=== PATIENT | female | born 1975 | race African-American/Black ===

== ENCOUNTER 2017-07-15 00:27 | Emergency (ER) | payer BC ==
[2017-07-15 00:46] VITALS: BP 120/74
--- NOTE | 2017-07-15 01:42 | RADIOLOGY REPORT (SQ) ---
EXAM DESCRIPTION: FOREARM RIGHT COMPLETED DATE/TIME: 07/15/2017 1:28 am REASON FOR STUDY: PAIN , fell off step ladder. Pain at the right mid forearm. COMPARISON: Right wrist x-ray 07/15/2017. NUMBER OF VIEWS: Two views. TECHNIQUE: Two radiographic images acquired of the right forearm, including elbow and wrist in at le ast one projection. LIMITATIONS: None. FINDINGS: MINERALIZATION: Normal. BONES: No acute fracture or dislocation. SOFT TISSUES: No obvious swelling or radiopaque foreign body. IMPRESSION: No radiographic evidence of acute injury. TECHNICAL DOCUMENTATION: JOB ID: [id number] 2010 [employer]- All Rights Reserved
--- NOTE | 2017-07-15 01:46 | RADIOLOGY REPORT (SQ) ---
EXAM DESCRIPTION: WRIST RIGHT 3 VIEWS COMPLETED DATE/TIME: 07/15/2017 1:28 am REASON FOR STUDY: PAIN , fell of step ladder. Pain at the anterior aspect of the right wrist. COMPARISON: None. NUMBER OF VIEWS: Three views. TECHNIQUE: AP, lateral, and oblique radiographic images acquired of the right wrist. LIMITATIONS: None. FINDINGS: MINERALIZATION: Normal. BONES: No acute fracture or dislocation. Normal alignment. SOFT TISSUES: No soft tissue swelling. No radiopaque foreign body. IMPRESSION: No radiographic evidence of acute injury. TECHNICAL DOCUMENTATION: JOB ID: [id number] 2010 [employer]- All Rights Reserved
--- NOTE | 2017-07-15 02:10 | ER Document Report ---
HPI - HPI Patient complains to provider of: fall Pain Level: 3 Context: patient is a 41-year-old patient is a 41-year-old [id number]-suosbits female who presents emergency department after suffering from loss of balance and fall from a ladder that was less than 3 feet high. Patient states that she fell landing on her right wrist she is unsure if it is hyper extended or Hyperflex. States she has pain in both distal ulna and radius with preserved range of motion of her wrist and elbow. Patient states that she has pain with supination and pronation but otherwise denies any numbness and tingling distal to the pain. Patient states that she did not take anything for pain prior to arrival - CONSTITUTIONAL Constitutional: DENIES: Fever, Chills - EENT EENT: DENIES: Sore Throat, Ear Pain, Eye problems - NEURO Neurology: DENIES: Headache, Weakness, Vision blurred, Dizzinesss / Vertigo - CARDIOVASCULAR Cardiovascular: DENIES: Chest pain - RESPIRATORY Respiratory: DENIES: Trouble Breathing, Coughing - GASTROINTESTINAL Gastrointestinal: DENIES: Abdominal Pain, Black / Bloody Stools - URINARY Urinary: DENIES: Dysuria, Urgency, Frequency - MUSCULOSKELETAL Musculoskeletal: REPORTS: Extremity pain - R wrist Past Medical History - Social History Smoking Status: Unknown if Ever Smoked Family History: Reviewed & Not Pertinent Patient has suicidal ideation: No Patient has homicidal ideation: No Renal/ Medical History: Denies: Hx Peritoneal Dialysis Vertical Provider Document - CONSTITUTIONAL Agree With Documented VS: Yes Notes: PHYSICAL EXAM GENERAL: Alert, interacts well. HEAD: Normocephalic, atraumatic. LUNGS: Clear to auscultation bilaterally, no wheezes, rales, or rhonchi. No respiratory distress. HEART: Regular rate and rhythm. No murmurs, gallops, or rubs. ABDOMEN: Soft, nondistended, nontender. No guarding, rebound, or rigidity.. Bowel sounds present in all 4 quadrants. EXTREMITIES: Moves all 4 extremities spontaneously. No edema, radial pulses 2/ 4 bilaterally. No cyanosis. Right wrist with normal inspection without evidence of edema, deformity, ecchymosis. Minimal tenderness to palpation at the distal radius and distal ulna. Patient able to flex and extend her wrist. Scrap Drop Operator strength 5 out of 5 bilaterally. Sensory equal in both upper extremities. Cap refill less than 2 seconds in bilateral upper extremity digits. Patient able to flex right elbow nontender with full range of motion NEUROLOGICAL: Alert and oriented x4. Normal speech. PSYCH: Normal affect, normal mood. SKIN: Warm, dry, normal turgor. No rashes or lesions noted. - INFECTION CONTROL TRAVEL OUTSIDE OF THE [place] IN LAST 30 DAYS: No - RESPIRATORY O2 Sat by Pulse Oximetry: 98 Course - Re-evaluation Re-evalutation: 07/15/17 02:09 patient is a 41-year-old female is hemodynamically stable, no acute distress. Presentation is consistent with a wrist sprain. Physical exam with low clinical suspicion for scaphoid injury given negative for snuffbox tenderness and pain proximal to that site. No evidence of a septic joint, gout flare, dislocation, or fracture on exam and imaging. Vitals wnl. At this time, I do not see an indication for labs or further imaging. Will discharge with conservative measures, return precautions, and follow-up recommendations. - Vital Signs Vital signs: Temp Pulse Resp BP Pulse Ox 99.2 F 80 18 120/74 98 07/15/17 00:44 07/15/17 00:44 07/15/17 00:44 07/15/17 00:44 07/15/17 00:44 - Diagnostic Test Radiology reviewed: Image reviewed, Reports reviewed Discharge - Discharge Clinical Impression: Wrist injury Qualifiers: Encounter type: initial encounter Laterality: right Qualified Code(s): S69.91XA - Unspecified injury of right wrist, hand and finger(s), initial encounter Condition: Good Disposition: HOME, SELF-CARE Instructions: Use of Rzne-Shd-Hyypjdy Ibuprofen ([facility]), Ice & Elevation ([facility]), Wrist Sprain ([facility])
== END 2017-07-15 02:19 | disposition home or self-care (01) ==
LOC: ER 00:27
DX: S69.91XA Unspecified injury of right wrist, hand and finger(s), initial encounter (principal); W11.XXXA Fall on and from ladder, initial encounter
CPT/HCPCS: 99283; 73090; 73110; L3908

== ENCOUNTER 2018-05-08 10:41 | Day surgery (SDC) | payer BC ==
[2018-05-08] MEDS ORDERED: DOXYCYCLINE HYCLATE 100 MG in DEXTROSE 5%-WATER 250 ML IV PRN (10:55)
[2018-05-08 11:13] LABS: APPEARANCE,URINE SLIGHTLY-CLOUDY; BILIRUBIN,URINE NEGATIVE (NEGATIVE); COLOR,URINE YELLOW; GLUCOSE, URINE NEGATIVE (NEGATIVE); KETONES,URINE NEGATIVE (NEGATIVE); LEUKOCYTE ESTERASE,URINE TRACE (NEGATIVE); NITRITE,URINE NEGATIVE (NEGATIVE); PROTEIN,URINE NEGATIVE (NEGATIVE); URINE SPECIFIC GRAVITY 1.021
[2018-05-08 11:25] LABS: HEMATOCRIT 39.7 % (36.0-47.0); HEMOGLOBIN 13.8 g/dL (12.0-15.5); MEAN CORPUSCULAR HEMOGLOBIN 31.5 pg (27.0-33.4); MEAN CORPUSCULAR HGB CONC 34.7 g/dL (32.0-36.0); MEAN CORPUSCULAR VOLUME 91 fl (80-97); PLATELET COUNT 271 10^3/uL (150-450); RED BLOOD COUNT 4.37 10^6/uL (3.72-5.28); RED CELL DISTRIBUTION WIDTH 13.4 % (11.5-14.0); WHITE BLOOD COUNT 7.6 10^3/uL (4.0-10.5)
[2018-05-08] MEDS ORDERED: KETOROLAC TROMETHAMINE 60 MG/2 ML SDV ONE (12:33)
[2018-05-08] MEDS ORDERED: LIDOCAINE 2% INJ-PF (20 MG/ML) 10 ML AMPUL ONE (12:33)
[2018-05-08] MEDS ORDERED: FENTANYL CITRATE INJ/PF 100 MCG/2 ML AMPUL ONE (12:33)
[2018-05-08] MEDS ORDERED: MIDAZOLAM 2 MG/2 ML INJ ONE (12:33)
[2018-05-08] MEDS ORDERED: PROPOFOL INJ 200 MG/20 ML VIAL IV ONE (12:34)
[2018-05-08] MEDS ORDERED: ACETAMINOPHEN 1,000 MG/100 ML RTUPB IV ONE (12:34)
[2018-05-08] MEDS ORDERED: ONDANSETRON HCL INJ/PF 4 MG/2 ML SDV ONE (12:44)
[2018-05-08] MEDS ORDERED: DEXAMETHASONE SOD PHOSPHATE INJ 4 MG/1 ML VIAL ONE (12:44)
[2018-05-08] MEDS ORDERED: PROMETHAZINE HCL INJ 25 MG/1 ML VIAL IV PRN ×2 (13:17)
[2018-05-08] MEDS ORDERED: ONDANSETRON HCL INJ/PF 4 MG/2 ML SDV IV PRN (13:17)
[2018-05-08] MEDS ORDERED: FENTANYL CITRATE INJ/PF 100 MCG/2 ML AMPUL IV PRN ×3 (13:17)
[2018-05-08] MEDS ORDERED: MEPERIDINE HCL/PF INJ 25 MG/1 ML DISP.SYRIN IV PRN (13:17)
[2018-05-08] MEDS ORDERED: DIPHENHYDRAMINE HCL 50 MG/ML VIAL IV PRN (13:17)
[2018-05-08] MEDS ORDERED: OXYCODONE-ACETAMINOPHEN 5-325 MG TABLET PO PRN ×4 (13:17→14:08)
--- NOTE | 2018-05-08 13:32 | Operative Report ---
Operative Report DATE OF SURGERY: 05/08/18 PREOPERATIVE DIAGNOSIS: Missed AB POSTOPERATIVE DIAGNOSIS: Same OPERATION: Suction D&C SURGEON: ASHKAN FUENTES ANESTHESIA: GA TISSUE REMOVED OR ALTERED: Uterine contents COMPLICATIONS: None ESTIMATED BLOOD LOSS: 20 cc INTRAOPERATIVE FINDINGS: Sound 8 cm before and after the case PROCEDURE: Patient was taken the OR and placed in supine position. General anesthesia was induced. She was placed in the dorsolithotomy position using Reginaldo stirrups. Her perineum and vagina were prepared and draped in sterile fashion. Her bladder was emptied with red rubber catheter. A weighted speculum was placed in the anterior cervix grasped with tenaculum. Sounded 8 cm before and after the case anteverted midline uterus. Cervix was gently dilated. Size 10 suction curette was used to evacuate uterine contents. At the end of the procedure the uterus was explored with a gentle sharp curettage and no retained products were noted. 1 Last Pass was taken with the suction curette and no further products noted. Sound at the end the case was 8 centimeters. Her blood type is Rh+ and no RhoGam issues are identified. All instruments were removed. The specimen will be sent for chromosomes. This is the end of dictation thank you
[2018-05-08] MEDS ORDERED: IBUPROFEN 800 MG TABLET PO PRN (14:07)
[2018-05-08] MEDS ORDERED: RINGERS SOLUTION,LACTATED 1,000 ML IV PRN (14:09)
[2018-05-08 16:25] VITALS: BP 99/56
== END 2018-05-08 16:20 | disposition home or self-care (01) ==
LOC: OROUT 10:41
PROVIDERS: ATTEND Obstetrics & Gynecology
DX: O02.1 Missed abortion (principal); F32.9 Major depressive disorder, single episode, unspecified; F41.9 Anxiety disorder, unspecified; Z87.891 Personal history of nicotine dependence; Z79.899 Other long term (current) drug therapy
CPT/HCPCS: 36415; 84702; 85027; 81001; 88233; 88262; 88305 ×2; 59820; J2250; J1100; J3490 ×2; J1885; J3010; J2405; J7060; J2704; J0131; 1965

== ENCOUNTER 2019-01-15 09:01 | Day surgery (SDC) | payer BC ==
[~2019-01-15 09:01] MED LIST: METHYLERGONOVINE MALEATE INJ/PF 0.2 MG/1 ML AMPULE ONE
[2019-01-15] MEDS ORDERED: MIDAZOLAM 2 MG/2 ML INJ ONE ×2 (09:13→10:45)
[2019-01-15] MEDS ORDERED: FAMOTIDINE INJ/PF 20 MG/2 ML SDV IV ONE (09:13)
[2019-01-15] MEDS ORDERED: METOCLOPRAMIDE HCL INJ/PF 10 MG/2 ML SDV ONE (09:13)
[2019-01-15] MEDS ORDERED: GLYCOPYRROLATE 1 MG/5 ML SYRINGE ONE (09:42)
[2019-01-15] MEDS ORDERED: LIDOCAINE 2% INJ-PF (20 MG/ML) 2 ML AMPUL ONE (09:42)
[2019-01-15 09:43] LABS: APPEARANCE,URINE SLIGHTLY-CLOUDY; BILIRUBIN,URINE NEGATIVE (NEGATIVE); COLOR,URINE YELLOW; GLUCOSE, URINE NEGATIVE (NEGATIVE); KETONES,URINE 20 mg/dL (NEGATIVE); LEUKOCYTE ESTERASE,URINE MODERATE (NEGATIVE); NITRITE,URINE NEGATIVE (NEGATIVE); PROTEIN,URINE NEGATIVE (NEGATIVE); URINE SPECIFIC GRAVITY 1.019; UROBILINOGEN,URINE NEGATIVE mg/dL (<2.0)
[2019-01-15] MEDS ORDERED: ALBUTEROL SULFATE 0.083% NEB 2.5 MG/3 ML AMPUL NEB ONE (09:43)
[2019-01-15 09:56] LABS: HEMATOCRIT 28.8 % (36.0-47.0); MEAN CORPUSCULAR HEMOGLOBIN 31.3 pg (27.0-33.4); MEAN CORPUSCULAR HGB CONC 34.6 g/dL (32.0-36.0); MEAN CORPUSCULAR VOLUME 90 fl (80-97); PLATELET COUNT 421 10^3/uL (150-450); RED BLOOD COUNT 3.18 10^6/uL (3.72-5.28); WHITE BLOOD COUNT 10.2 10^3/uL (4.0-10.5)
[2019-01-15] MEDS ORDERED: DOXYCYCLINE HYCLATE 100 MG in DEXTROSE 5%-WATER 250 ML IV PRN (10:32)
[2019-01-15] MEDS ORDERED: SCOPOLAMINE HYDROBROMIDE 1.5 MG PATCH.TD72 ONE (10:35)
[2019-01-15] MEDS ORDERED: DEXAMETHASONE SOD PHOSPHATE INJ 4 MG/1 ML VIAL ONE (10:35)
[2019-01-15] MEDS ORDERED: FENTANYL CITRATE INJ/PF 100 MCG/2 ML AMPUL ONE (10:45)
[2019-01-15] MEDS ORDERED: KETAMINE HCL INJ 500 MG/10 ML VIAL ONE (10:45)
[2019-01-15] MEDS ORDERED: MISOPROSTOL 0.2 MG TABLET ONE (10:45)
[2019-01-15] MEDS ORDERED: PROPOFOL INJ 200 MG/20 ML VIAL IV ONE (10:46)
[2019-01-15] MEDS ORDERED: DIPHENHYDRAMINE HCL 50 MG/ML VIAL IV PRN (12:03)
[2019-01-15] MEDS ORDERED: FENTANYL CITRATE INJ/PF 100 MCG/2 ML AMPUL IV PRN ×3 (12:03)
[2019-01-15] MEDS ORDERED: PROMETHAZINE HCL INJ 25 MG/1 ML VIAL IV PRN ×2 (12:03)
[2019-01-15] MEDS ORDERED: MEPERIDINE HCL/PF INJ 25 MG/1 ML DISP.SYRIN IV PRN (12:03)
--- NOTE | 2019-01-15 12:23 | Operative Report ---
Operative Report DATE OF SURGERY: 01/15/19 PREOPERATIVE DIAGNOSIS: 1. Retained products of conception. 2. Rh Positive POSTOPERATIVE DIAGNOSIS: Same plus possible endocervical polyp OPERATION: Suction dilatation and curettage SURGEON: ZHANG WALLACE ANESTHESIA: LMAC TISSUE REMOVED OR ALTERED: Products of conception COMPLICATIONS: None ESTIMATED BLOOD LOSS: 550 ml INTRAOPERATIVE FINDINGS: Uterus sounded 12 cm; 10 mm curved Kyrgyz curette used to; large amounts of products of conception; possible cervical polyp PROCEDURE: The patient was taken to the Operating Room where general anesthesia was obtained without difficulty. She was prepped and draped in the normal sterile fashion in the dorsal lithotomy position. Exam under anesthesia was performed and noted above. A speculum was placed in the vagina. The anterior cervix was grasped with a single-tooth tenaculum and the uterus sounded to 12 cm. The cervix was noted to be slightly dilated at the beginning of the procedure. There was a polypoid lesion at the cervical os, which was removed with the polyp forceps. It ws passed off to the OR Tech for pathological evaluation. Sequential dilators were then used to dilate the cervix to accommodate the 10 mm suction curet curved. The 10 mm curved suction curet was gently advanced in the usual fashion and good return of tissue. The suction device was then activated and the curet rotated to clear the uterus of the products of conception. A sharp curettage was then performed. The suction device was then gently reintroduced and activated and the curet rotated to clear the uterus of conception which was loosened with recent sharp curettage. There was large amounts of products of conception. Three containers were filled. The sharp curettage was then performed again until a gritty texture was noted and the cavity was felt to be empty of further tissue. Methergine 0.2 mg was given IM. I also placed Cytotec 800 mcg per rectum. After the injection, there was minimal bleeding noted from the cervix. All instruments were removed from the patient's cervix and vagina. Monsel solution was applied to polyp excision site for hemostasis. Sponge, lap, needle and instrument counts are correct 2. Doxycycline 100 mg IV was given perioperatively. The patient tolerated the procedure well and was taken to the recovery area awake and in stable condition. The patient was discharged home.
[2019-01-15] MEDS: FENTANYL CITRATE INJ/PF 100 MCG/2 ML AMPUL ONE ×2 (12:27→12:35)
[2019-01-15] MEDS ORDERED: ONDANSETRON HCL INJ/PF 4 MG/2 ML SDV IV PRN (13:04)
[2019-01-15] MEDS ORDERED: OXYCODONE-ACETAMINOPHEN 5-325 MG TABLET PO PRN (13:04)
[2019-01-15] MEDS ORDERED: OXYCODONE-ACETAMINOPHEN 5-325 MG TABLET ONE (13:07)
[2019-01-15 14:34] VITALS: BP 99/53
== END 2019-01-15 14:05 | disposition home or self-care (01) ==
LOC: OROUT 09:01
PROVIDERS: ATTEND Obstetrics & Gynecology
DX: O02.1 Missed abortion (principal); N84.1 Polyp of cervix uteri; F17.210 Nicotine dependence, cigarettes, uncomplicated; Z79.899 Other long term (current) drug therapy
CPT/HCPCS: 86900; 86901; 36415; 86850; 85027; 81001; 88305 ×2; 59820; J2250; J1100; J3490 ×4; J3010; J2210; J2765; J7060; J2704; S0028; 1965

== ENCOUNTER 2019-01-17 21:07 | Inpatient (IN) | payer BC ==
[2019-01-17 23:21] LABS: VENOUS BLOOD BASE EXCESS -1.8 mmol/L; VENOUS BLOOD HCO3 21.6 mmol/L (20-32); VENOUS BLOOD PCO2 31.3 mmHg (35-63); VENOUS BLOOD PH 7.46 (7.30-7.42)
[2019-01-17 23:27] LABS: HEMATOCRIT 23.2 % (36.0-47.0); HEMOGLOBIN 8.2 g/dL (12.0-15.5); MEAN CORPUSCULAR HEMOGLOBIN 31.6 pg (27.0-33.4); MEAN CORPUSCULAR HGB CONC 35.3 g/dL (32.0-36.0); MEAN CORPUSCULAR VOLUME 89 fl (80-97); PLATELET COUNT 350 10^3/uL (150-450); RED CELL DISTRIBUTION WIDTH 14.3 % (11.5-14.0); WHITE BLOOD COUNT 16.8 10^3/uL (4.0-10.5)
[2019-01-17 23:30] LABS: INTERNATIONAL RATION (INR) 0.97; PROTHROMBIN TIME 13.4 SEC (11.4-15.4)
[2019-01-17 23:40] LABS: ALANINE AMINOTRANSFERASE 17 U/L (9-52); ALBUMIN 3.2 g/dL (3.5-5.0); ALKALINE PHOSPHATASE 63 U/L (38-126); ANION GAP 10 (5-19); ASPARTATE AMINO TRANSFERASE 15 U/L (14-36); BILIRUBIN,DIRECT 0.2 mg/dL (0.0-0.4); BILIRUBIN,TOTAL 0.2 mg/dL (0.2-1.3); BLOOD UREA NITROGEN 7 mg/dL (7-20); CALCIUM 8.3 mg/dL (8.4-10.2); CARBON DIOXIDE 21 mmol/L (22-30); CHLORIDE 104 mmol/L (98-107); GLUCOSE 108 mg/dL (75-110); SODIUM 134.5 mmol/L (137-145); TOTAL PROTEIN 5.9 g/dL (6.3-8.2)
[2019-01-17 23:43] LABS: ABSOLUTE LYMPHOCYTES# (MANUAL) 0.3 10^3/uL (0.5-4.7); ABSOLUTE NEUTROPHILS# (MANUAL) 16.5 10^3/uL (1.7-8.2); BAND NEUTROPHILS % (MANUAL) 4 % (3-5); BASOPHILS % (MANUAL) 0 % (0-2); EOSINOPHILS % (MANUAL) 0 % (0-6); LYMPHOCYTES % (MANUAL) 2 % (13-45); MONOCYTES % (MANUAL) 0 % (3-13); SEGMENTED NEUTROPHILS % (MAN) 94 % (42-78); TOTAL CELLS COUNTED 100
[2019-01-17 23:45] LABS: PLATELET CLUMPS PRESENT
[2019-01-17 23:48] LABS: ANISOCYTOSIS SLIGHT
[2019-01-17 23:59] LABS: APPEARANCE,URINE SLIGHTLY-CLOUDY; BILIRUBIN,URINE NEGATIVE (NEGATIVE); COLOR,URINE YELLOW; GLUCOSE, URINE NEGATIVE (NEGATIVE); KETONES,URINE NEGATIVE (NEGATIVE); LEUKOCYTE ESTERASE,URINE SMALL (NEGATIVE); NITRITE,URINE NEGATIVE (NEGATIVE); PROTEIN,URINE NEGATIVE (NEGATIVE); URINE SPECIFIC GRAVITY 1.002; UROBILINOGEN,URINE NEGATIVE mg/dL (<2.0)
[2019-01-18] MEDS ORDERED: CLINDAMYCIN 600 MG/D5W RTU 600 MG/50 ML RTUPB IV ONE (00:14)
[2019-01-18] MEDS ORDERED: GENTAMICIN SULFATE INJ 80 MG/2 ML VIAL IV ONE (00:14)
[2019-01-18] MEDS ORDERED: RINGERS SOLUTION,LACTATED 2,000 ML IV ONE (00:15)
[2019-01-18] MEDS ORDERED: ACETAMINOPHEN 325 MG TABLET PO ONE (00:16)
[2019-01-18] MEDS ORDERED: POTASSI CL 20 MEQ/50 ML RIDER 20 MEQ/50 ML RTUPB IV ONE (00:16)
[2019-01-18 00:18] LABS: BACTERIA (WET MOUNT) 3+ BACTERIA SEEN; EPITHELIALS (WET MOUNT) 3+ EPITHELIALS SEEN; RBCS (WET MOUNT) 1+ RBCS SEEN; T.VAGINALIS (WET MOUNT) NO TRICHOMONAS SEEN; WBCS (WET MOUNT) 1+ WBCS SEEN; YEAST (WET MOUNT) NO YEAST SEEN
--- NOTE | 2019-01-18 00:18 | ER Document Report ---
ED General - General Chief Complaint: Post Surgical Pain Stated Complaint: FEVER,HEADACHE,CHILLS Time Seen by Provider: 01/17/19 23:16 Notes: Patient is a 43-year-old female who had a D&C performed 48 hours ago who presents with concerns of fever. Patient states that over the last 12 to 24 hours she has been feeling increasingly unwell with malaise, body aches and was noted to have a fever at home. She came to the emergency department due to the symptoms. States symptoms are gradual in onset, been worsening since that time. Describes a generalized, cramping, aching discomfort to her lower abdomen that is quite mild in nature. Nothing has been noted to improve her symptoms and she did try acetaminophen at home. No obvious worsening factor. Denies any history of similar symptoms in the past. D&C was performed secondary to a miscarriage. Patient denies any other chronic medical problems or any other surgical history. TRAVEL OUTSIDE OF THE [place] IN LAST 30 DAYS: No - Related Data Allergies/Adverse Reactions: No Known Allergies Allergy (Verified 01/17/19 23:07) Past Medical History - General Information source: Patient - Social History Smoking Status: Current Every Day Smoker Frequency of alcohol use: None Drug Abuse: None Lives with: Spouse/Significant other Family History: Reviewed & Not Pertinent Patient has suicidal ideation: No Patient has homicidal ideation: No - Past Medical History Cardiac Medical History: Denies: Hx Coronary Artery Disease, Hx Heart Attack, Hx Hypertension Pulmonary Medical History: Denies: Hx Asthma, Hx Bronchitis, Hx COPD, Hx Pneumonia Neurological Medical History: Denies: Hx Cerebrovascular Accident, Hx Seizures Renal/ Medical History: Denies: Hx Peritoneal Dialysis Musculoskeletal Medical History: Denies Hx Arthritis Psychiatric Medical History: Reports: Hx Depression Past Surgical History: Reports: Hx Breast Surgery - augmentation, Hx Gynecologic Surgery - D&C x2, Hx Orthopedic Surgery - "hip pins" - Immunizations Hx Diphtheria, Pertussis, Tetanus Vaccination: No Review of Systems - Review of Systems Notes: Constitutional: Positive for fever. HENT: Negative for sore throat. Eyes: Negative for visual changes. Cardiovascular: Negative for chest pain. Respiratory: Negative for shortness of breath. Gastrointestinal: Positive for lower abdominal cramping and nausea Genitourinary: Negative for dysuria. Positive for vaginal bleeding Musculoskeletal: Negative for back pain. Skin: Negative for rash. Neurological: Negative for headaches, weakness or numbness. 10 point ROS negative except as marked above and in HPI. Physical Exam - Vital signs Vitals: Temp Pulse Resp BP Pulse Ox 101.5 F H 127 H 18 105/61 98 01/17/19 21:28 01/17/19 21:28 01/17/19 21:28 01/17/19 21:28 01/17/19 21:28 Interpretation: Tachycardic, Febrile Notes: PHYSICAL EXAMINATION: GENERAL: Appears moderately unwell but in no acute distress HEAD: Atraumatic, normocephalic. EYES: Pupils equal round and reactive to light, extraocular movements intact, sclera anicteric, conjunctiva are normal. ENT: nares patent, oropharynx clear without exudates. Moderately dry mucous membranes. NECK: Normal range of motion, supple without lymphadenopathy LUNGS: Breath sounds clear to auscultation bilaterally and equal. No wheezes rales or rhonchi. HEART: Regular tachycardia without murmurs ABDOMEN: Soft, nontender, normoactive bowel sounds. No guarding, no rebound. No masses appreciated. : Mild superpubic abdominal tenderness. No cervical motion tenderness. Scant vaginal bleeding. EXTREMITIES: Normal range of motion, no pitting or edema. No cyanosis. NEUROLOGICAL: No focal neurological deficits. Moves all extremities spontaneously and on command. PSYCH: Normal mood, normal affect. SKIN: Warm, Dry, normal turgor, no rashes or lesions noted. Course - Re-evaluation Re-evalutation: 01/18/19 00:17 Patient presents with history worrisome for endometritis after D&C 48 hours ago. Transvaginal ultrasound is pending to evaluate for retained products conception. Patient is febrile with leukocytosis, does meet sepsis criteria. Pelvic examination shows blood but no significant lochia. Patient has no focal abdominal tenderness, rebound or guarding on exam. No alternative source of fever by history or exam. The patient has been started on gentamicin and clindamycin. IV fluid resuscitation as well as antipyresis likewise ordered. 01/18/19 01:13 Transvaginal ultrasound shows thickened endometrium although no evidence of retained products of conception. Patient's blood pressures are somewhat soft although based on review of her record she consistently has mild hypotension's in the 90s. She is receiving fluid boluses at this time. I have discussed with Dr. porras the OB on-call who has accepted the patient for admission. - Vital Signs Vital signs: Temp Pulse Resp BP Pulse Ox 98.0 F 127 H 20 91/48 L 100 01/18/19 03:00 01/17/19 21:28 01/18/19 03:00 01/18/19 03:00 01/18/19 03:00 - Laboratory Result Diagrams: 01/17/19 22:50 01/17/19 22:50 Laboratory results interpreted by me: 01/17/19 01/17/19 01/17/19 22:50 22:50 22:50 WBC 16.8 H RBC 2.60 L Hgb 8.2 L Hct 23.2 L RDW 14.3 H Seg Neuts % (Manual) 94 H Lymphocytes % (Manual) 2 L Monocytes % (Manual) 0 L Abs Neuts (Manual) 16.5 H Abs Lymphs (Manual) 0.3 L Abs Monocytes (Manual) 0.0 L VBG pH 7.46 H VBG pCO2 31.3 L Sodium 134.5 L Potassium 3.0 L* Carbon Dioxide 21 L Creatinine 0.50 L Calcium 8.3 L Total Protein 5.9 L Albumin 3.2 L Urine Blood Ur Leukocyte Esterase 01/17/19 23:37 WBC RBC Hgb Hct RDW Seg Neuts % (Manual) Lymphocytes % (Manual) Monocytes % (Manual) Abs Neuts (Manual) Abs Lymphs (Manual) Abs Monocytes (Manual) VBG pH VBG pCO2 Sodium Potassium Carbon Dioxide Creatinine Calcium Total Protein Albumin Urine Blood LARGE H Ur Leukocyte Esterase SMALL H - Diagnostic Test Radiology reviewed: Reports reviewed Discharge - Discharge Clinical Impression: Endometritis Sepsis Qualifiers: Sepsis type: sepsis due to unspecified organism Qualified Code(s): A41.9 - Sepsis, unspecified organism Condition: Fair Disposition: ADMITTED INPATIENT Admitting Provider: [facility] Unit Admitted: Post
[2019-01-18] MEDS ORDERED: POTASSIUM CHLORIDE 10 MEQ CAPSULE.ER PO ONE (00:26)
[2019-01-18] MEDS: MAGNESIUM SULFATE/D5W 1 GM/100 ML RTUPB IV SCH ×2 (01:00→02:01)
--- NOTE | 2019-01-18 01:04 | RADIOLOGY REPORT (SQ) ---
EXAM DESCRIPTION: US TRANSVAGINAL COMPLETED DATE/TME: 01/17/2019 23:18 CLINICAL HISTORY: 43 years, Female, Possible endometritis COMPARISON: None. TECHNIQUE: Transverse and longitudinal transvaginal sonographic images of the pelvis LIMITATIONS: None. FINDINGS: The uterus measures 13.4 x 8.5 x 9.7 cm. The myometrium is homogenous. The endometrium is thickened and heterogeneous in echotexture measuring 4.4 cm. The ovaries are not well seen, likely due to their position in the pelvis and overlying bowel gas. No adnexal cyst or mass. No free fluid IMPRESSION: Thickening and heterogeneity of the endometrium, as above. Findings are nonspecific. Nonvisualization of the ovaries copyright 2010 [employer]- All Rights Reserved
[2019-01-18 01:42] LABS: CHLAM PCR NOT DETECTED (NOT DETECT); GON PCR NOT DETECTED (NOT DETECT)
--- NOTE | 2019-01-18 05:06 | PDOC H&P ---
History of Present Illness Admission Date/PCP: 01/18/19 01:20 YOUSIF HANEY MD Patient complains of: Fever and chills with mild cramping, which started yesterday evening History of Present Illness: LINDEN MONROY is a 43 year old G8, P4 presented to [facility] ED complaining of fever and chills with light cramping which started at approximately 5 PM yesterday. P atient underwent a suction D&C a week ago Friday secondary to an incomplete . Patient passed a fetus approximately a week prior to the procedure. Patient used Cytotec x2 without passing tissue. During the D&C, patient had large amounts of products of conception. Patient stated that her postoperative course was normal. She went home and had very light bleeding with no foul odor. To this date, she has no foul odor. She noticed fever and chills, with a temperature of 103.5, at approximately 5 PM yesterday and had a decrease in her appetite, therefore she went to the emergency department. She underwent a pelvic ultrasound she underwent a pelvic ultrasound which showed a uterus measuring 13.4 x 8.5 x 9.7 cm with thickened endometrial echotexture. Past Medical History Cardiac Medical History: Denies: Coronary Artery Disease, Myocardial Infarction, Hypertension Pulmonary Medical History: Denies: Asthma, Bronchitis, Chronic Obstructive Pulmonary Disease (COPD), Pneumonia Neurological Medical History: Denies: Seizures Musculoskeltal Medical History: Denies: Arthritis Psychiatric Medical History: Reports: Depression Past Surgical History Past Surgical History: [facility] 05/2019; NCC 12/2018; Gastric by-pass Past Surgical History: Reports: Orthopedic Surgery - "hip pins" Social History Lives with: Spouse/Significant other Smoking Status: Current Every Day Smoker Frequency of Alcohol Use: Rare Drugs: None - Advance Directive Resuscitation Status: Full Code Family History Family History: Reviewed & Not Pertinent Parental Family History Reviewed: Yes Children Family History Reviewed: NA Sibling(s) Family History Reviewed.: NA Medication/Allergy Home Medications: Duloxetine HCl [Cymbalta] 60 mg PO QHS 05/08/18 Buspirone HCl [Buspar 10 mg Tablet] 10 mg PO PRN PRN 01/15/19 Acetaminophen with Codeine [Tylenol #3 Tablet] 1 each PO Q4HP PRN 01/17/19 Hydrocodone/Acetaminophen [[place] 5-325 mg Tablet] 1 tab PO PRN PRN 01/17/19 Allergies/Adverse Reactions: No Known Allergies Allergy (Verified 01/17/19 23:07) Review of Systems Constitutional: PRESENT: chills, fever(s) Cardiovascular: ABSENT: as per HPI, chest pain, dyspnea on exertion, edema, ort hropnea, palpitations, other Respiratory: ABSENT: as per HPI, cough, dyspnea, hemoptysis, sputum, other Genitourinary: PRESENT: other - cramping Neurological: ABSENT: as per HPI, abnormal gait, abnormal movements, abnormal sp eech, confusion, convulsions, dizziness, focal weakness, frequent falls, lack of coordination, memory loss, numbness, paresthesias, restless legs, syncope, tingling, tremor(s), vertigo, weakness, other Physical Exam - Physical Exam Vital Signs: Temp Pulse Resp BP Pulse Ox 98.0 F 127 H 20 91/48 L 100 01/18/19 03:00 01/17/19 21:28 01/18/19 03:00 01/18/19 03:00 01/18/19 03:00 Intake & Output 01/16/19 01/17/19 01/18/19 06:59 06:59 06:59 Intake Total 1627 Balance 1627 Weight 65.9 kg General appearance: PRESENT: no acute distress Respiratory exam: PRESENT: clear to auscultation imer Cardiovascular exam: PRESENT: RRR GI/Abdominal exam: PRESENT: normal bowel sounds, soft Extremities exam: ABSENT: calf tenderness, clubbing, full ROM, joint swelling, pedal edema, tenderness, +1 edema, +2 edema, other - Gynecological Exam Vagina: normal Uterus: tender Result Laboratory Results: 01/17/19 22:50 01/17/19 22:50 01/17/19 01/17/19 01/17/19 22:50 22:50 22:50 WBC 16.8 H RBC 2.60 L Hgb 8.2 L Hct 23.2 L MCV 89 MCH 31.6 MCHC 35.3 RDW 14.3 H Plt Count 350 Seg Neutrophils % Not Reportable Lymphocytes % Not Reportable Monocytes % Not Reportable Eosinophils % Not Reportable Basophils % Not Reportable Absolute Neutrophils Not Reportable Absolute Lymphocytes Not Reportable Absolute Monocytes Not Reportable Absolute Eosinophils Not Reportable Absolute Basophils Not Reportable VBG pH VBG pCO2 VBG HCO3 VBG Base Excess Sodium 134.5 L Potassium 3.0 L* Chloride 104 Carbon Dioxide 21 L Anion Gap 10 BUN 7 Creatinine 0.50 L Est GFR ( Amer) > 60 Est GFR (Non-Af Amer) > 60 Glucose 108 Lactic Acid 1.3 Calcium 8.3 L Magnesium Total Bilirubin 0.2 AST 15 ALT 17 Alkaline Phosphatase 63 Total Protein 5.9 L Albumin 3.2 L Urine Color Urine Appearance Urine pH Ur Specific [place] Urine Protein Urine Glucose (UA) Urine Ketones Urine Blood Urine Nitrite Ur Leukocyte Esterase Urine WBC (Auto) Urine RBC (Auto) 01/17/19 01/17/19 01/17/19 22:50 22:50 23:37 WBC RBC Hgb Hct MCV MCH MCHC RDW Plt Count Seg Neutrophils % Lymphocytes % Monocytes % Eosinophils % Basophils % Absolute Neutrophils Absolute Lymphocytes Absolute Monocytes Absolute Eosinophils Absolute Basophils VBG pH 7.46 H VBG pCO2 31.3 L VBG HCO3 21.6 VBG Base Excess -1.8 Sodium Potassium Chloride Carbon Dioxide Anion Gap BUN Creatinine Est GFR ( Amer) Est GFR (Non-Af Amer) Glucose Lactic Acid Calcium Magnesium 1.6 Total Bilirubin AST ALT Alkaline Phosphatase Total Protein Albumin Urine Color YELLOW Urine Appearance SLIGHTLY-CLOUDY Urine pH 6.0 Ur Specific [place] 1.002 Urine Protein NEGATIVE Urine Glucose (UA) NEGATIVE Urine Ketones NEGATIVE Urine Blood LARGE H Urine Nitrite NEGATIVE Ur Leukocyte Esterase SMALL H Urine WBC (Auto) 15 Urine RBC (Auto) 3 Impressions: Transvaginal US 01/17/19 23:18 IMPRESSION: Thickening and heterogeneity of the endometrium, as above. Findings are nonspecific. Nonvisualization of the ovaries copyright 2010 [employer]- All Rights Reserved Assessment & Plan - Diagnosis (1) Anemia Qualifiers: Anemia type: iron deficiency Is this a current diagnosis for this admission?: Yes (2) S/P dilatation and curettage Is this a current diagnosis for this admission?: Yes (3) Leukocytosis Is this a current diagnosis for this admission?: Yes (4) Afebrile Is this a current diagnosis for this admission?: Yes (5) Hypokalemia Is this a current diagnosis for this admission?: Yes (6) Tobacco abuse Is this a current diagnosis for this admission?: Yes - Time Time Spent: 30 to 50 Minutes Anticipated discharge: Home Within: within 48 hours - Inpatient Certification Based on my medical assessment, after consideration of the patient's comorbidities, presenting symptoms, or acuity I expect that the services needed warrant INPATIENT care.: Yes I certify that my determination is in accordance with my understanding of Medicare's requirements for reasonable and necessary INPATIENT services [42 CFR 412.3e].: Yes Medical Necessity: Need for IV Antibiotics - Plan Summary Plan Summary: 1. Continue IV antibiotics 2. Probable discharge in approximately 48 hours, if afebrile 3. Continue depression meds
[2019-01-18] MEDS: RINGERS SOLUTION,LACTATED 1,000 ML IV PRN ×2 (05:16→21:49)
[2019-01-18] MEDS ORDERED: GENTAMICIN SULFATE INJ 80 MG/2 ML VIAL IV PRN (05:34)
[2019-01-18] MEDS ORDERED: DEXTROSE 5% IV SCH ×2 (06:00→10:00)
[2019-01-18] MEDS ORDERED: CLINDAMYCIN 900 MG/D5W RTU 900 MG/50 ML RTUPB IV SCH (06:00)
[2019-01-18] MEDS ORDERED: WATER IV SCH ×2 (06:00→10:00)
[2019-01-18] MEDS ORDERED: GENTAMICIN SULFATE IV SCH ×2 (06:00→10:00)
--- NOTE | 2019-01-18 07:26 | EKG REPORT ---
SEVERITY:- ABNORMAL ECG - SINUS TACHYCARDIA DIFUSE NONSPECIFIC ST-T CHANGES : Confirmed by: Ascencion Caicedo MD 18-Jan-2019 07:26:02
[2019-01-18] MEDS: IBUPROFEN 800 MG TABLET PO PRN ×2 (08:09→16:45)
[2019-01-18] MEDS ORDERED: IRON SUCROSE COMPLEX INJ/PF 100 MG/5 ML SDV IV ONE (09:00)
[2019-01-18] MEDS: DULOXETINE HCL 30 MG CAPSULE.DR PO SCH (10:35)
[2019-01-18] MEDS: CLINDAMYCIN 900 MG/D5W RTU 900 MG/50 ML RTUPB IV SCH ×2 (10:36→17:46)
[2019-01-18] MEDS: GENTAMICIN SULFATE 120 MG in DEXTROSE 5%-WATER 100 ML IV SCH ×2 (12:01→19:01)
[2019-01-18] MEDS ORDERED: POTASSIUM CHLORIDE 20 MEQ PACKET PO ONE (18:00)
[2019-01-18] MEDS ORDERED: BUSPIRONE HCL 10 MG TABLET PO ONE (20:00)
[2019-01-18] MEDS: ZOLPIDEM TARTRATE 5 MG TABLET PO SCH (21:49)
[2019-01-19] MEDS: CLINDAMYCIN 900 MG/D5W RTU 900 MG/50 ML RTUPB IV SCH ×3 (01:56→17:08)
[2019-01-19] MEDS: GENTAMICIN SULFATE 120 MG in DEXTROSE 5%-WATER 100 ML IV SCH ×3 (03:52→18:44)
[2019-01-19 05:28] LABS: ABSOLUTE EOSINOPHILS # (AUTO) 0.2 10^3/uL (0.0-0.6); ABSOLUTE LYMPHOCYTES (AUTO) 1.2 10^3/uL (0.5-4.7); ABSOLUTE MONOCYTES (AUTO) 0.5 10^3/uL (0.1-1.4); ABSOLUTE NEUT (AUTO) 9.2 10^3/uL (1.7-8.2); BASOPHILS % (AUTO) 0.2 % (0-2); EOSINOPHILS % (AUTO) 1.6 % (0-6); HEMATOCRIT 21.3 % (36.0-47.0); LYMPHOCYTES % (AUTO) 11.1 % (13-45); MEAN CORPUSCULAR HEMOGLOBIN 30.7 pg (27.0-33.4); MEAN CORPUSCULAR VOLUME 91 fl (80-97); MONOCYTES % (AUTO) 4.5 % (3-13); PLATELET COUNT 302 10^3/uL (150-450); RED BLOOD COUNT 2.35 10^6/uL (3.72-5.28); RED CELL DISTRIBUTION WIDTH 14.9 % (11.5-14.0); SEGMENTED NEUTROPHILS % (AUTO) 82.6 % (42-78); TOTAL CELLS COUNTED % (AUTO) 100 %; WHITE BLOOD COUNT 11.1 10^3/uL (4.0-10.5)
[2019-01-19 05:33] LABS: ALANINE AMINOTRANSFERASE 33 U/L (9-52); ALBUMIN 2.5 g/dL (3.5-5.0); ALKALINE PHOSPHATASE 69 U/L (38-126); ANION GAP 8 (5-19); ASPARTATE AMINO TRANSFERASE 31 U/L (14-36); BILIRUBIN,DIRECT 0.1 mg/dL (0.0-0.4); BILIRUBIN,TOTAL 0.1 mg/dL (0.2-1.3); BLOOD UREA NITROGEN 8 mg/dL (7-20); CARBON DIOXIDE 23 mmol/L (22-30); CHLORIDE 108 mmol/L (98-107); GLUCOSE 100 mg/dL (75-110); HEMOGLOBIN 7.2 g/dL (12.0-15.5); POTASSIUM 4.3 mmol/L (3.6-5.0); SODIUM 139.1 mmol/L (137-145); TOTAL PROTEIN 4.8 g/dL (6.3-8.2)
[2019-01-19] MEDS ORDERED: GENTAMICIN SULFATE INJ 80 MG/2 ML VIAL IV SCH (06:00)
[2019-01-19] MEDS: IBUPROFEN 800 MG TABLET PO PRN (07:46)
[2019-01-19] MEDS: DULOXETINE HCL 30 MG CAPSULE.DR PO SCH (09:10)
--- NOTE | 2019-01-19 09:58 | PDOC PROGRESS REPORT ---
Subjective Progress Note for:: 01/19/19 Subjective:: feeling much better than at admission. Reason For Visit: ANEMIA,S/P DILATION AND CURETTAGE,LEUKOCYTOSIS, Physical Exam - Physical Exam Vital Signs: Temp Pulse Resp BP Pulse Ox 98.4 F 89 16 115/66 98 01/19/19 07:23 01/19/19 07:23 01/19/19 07:23 01/19/19 07:23 01/19/19 07:23 Intake & Output 01/18/19 01/19/19 01/20/19 06:59 06:59 06:59 Intake Total 2177 3150 Balance 2177 3150 Weight 65.9 kg General appearance: PRESENT: no acute distress, cooperative GI/Abdominal exam: PRESENT: soft - nontender and nondistended. - Gynecological Exam Vagina: normal Uterus: tender Result Laboratory Results: 01/19/19 04:26 01/19/19 04:26 01/17/19 01/19/19 01/19/19 22:50 04:26 04:26 WBC 11.1 H RBC 2.35 L Hgb 7.2 L Hct 21.3 L MCV 91 MCH 30.7 MCHC 34.0 RDW 14.9 H Plt Count 302 Seg Neutrophils % 82.6 H Lymphocytes % 11.1 L Monocytes % 4.5 Eosinophils % 1.6 Basophils % 0.2 Absolute Neutrophils 9.2 H Absolute Lymphocytes 1.2 Absolute Monocytes 0.5 Absolute Eosinophils 0.2 Absolute Basophils 0.0 Sodium 134.5 L 139.1 Potassium 3.0 L* 4.3 Chloride 104 108 H Carbon Dioxide 21 L 23 Anion Gap 10 8 BUN 7 8 Creatinine 0.50 L 0.36 L Est GFR ( Amer) > 60 > 60 Est GFR (Non-Af Amer) > 60 > 60 Glucose 108 100 Calcium 8.3 L 8.0 L Total Bilirubin 0.2 0.1 L AST 15 31 ALT 17 33 Alkaline Phosphatase 63 69 Total Protein 5.9 L 4.8 L Albumin 3.2 L 2.5 L Impressions: Transvaginal US 01/17/19 23:18 IMPRESSION: Thickening and heterogeneity of the endometrium, as above. Findings are nonspecific. Nonvisualization of the ovaries copyright 2010 [employer]- All Rights Reserved Assessment & Plan - Diagnosis (1) Endometritis Is this a current diagnosis for this admission?: Yes (2) Leukocytosis Is this a current diagnosis for this admission?: Yes (3) S/P dilatation and curettage Is this a current diagnosis for this admission?: Yes (4) Sepsis Qualifiers: Sepsis type: sepsis due to unspecified organism Qualified Code(s): A41.9 - Sepsis, unspecified organism Is this a current diagnosis for this admission?: Yes - Time Time Spent with patient: Less than 15 minutes Anticipated discharge: Home Within: within 24 hours - Inpatient Certification Based on my medical assessment, after consideration of the patient's comorbi dities, presenting symptoms, or acuity I expect that the services needed warrant INPATIENT care.: Yes I certify that my determination is in accordance with my understanding of Medicare's requirements for reasonable and necessary INPATIENT services [42 CFR 412.3e].: Yes Medical Necessity: Need for IV Antibiotics - Plan Summary Plan Summary: willl discharge home in early AM with Doxycycline for 5 days. continue current antibiotics. repeat CBC in AM.
[2019-01-19 10:52] LABS: GENTAMICIN-TROUGH 1.3 ug/mL (<2.0)
[2019-01-19] MEDS: RINGERS SOLUTION,LACTATED 1,000 ML IV PRN (17:11)
[2019-01-19] MEDS: ZOLPIDEM TARTRATE 5 MG TABLET PO SCH (21:55)
[2019-01-20] MEDS: CLINDAMYCIN 900 MG/D5W RTU 900 MG/50 ML RTUPB IV SCH (01:05)
[2019-01-20] MEDS: GENTAMICIN SULFATE 120 MG in DEXTROSE 5%-WATER 100 ML IV SCH (02:24)
[2019-01-20 04:33] LABS: ABSOLUTE EOSINOPHILS # (AUTO) 0.2 10^3/uL (0.0-0.6); ABSOLUTE LYMPHOCYTES (AUTO) 1.9 10^3/uL (0.5-4.7); ABSOLUTE MONOCYTES (AUTO) 0.8 10^3/uL (0.1-1.4); ABSOLUTE NEUT (AUTO) 8.3 10^3/uL (1.7-8.2); BASOPHILS % (AUTO) 0.3 % (0-2); HEMATOCRIT 22.6 % (36.0-47.0); LYMPHOCYTES % (AUTO) 16.9 % (13-45); MEAN CORPUSCULAR HEMOGLOBIN 30.9 pg (27.0-33.4); MEAN CORPUSCULAR HGB CONC 34.1 g/dL (32.0-36.0); MEAN CORPUSCULAR VOLUME 91 fl (80-97); MONOCYTES % (AUTO) 6.8 % (3-13); PLATELET COUNT 334 10^3/uL (150-450); RED BLOOD COUNT 2.49 10^6/uL (3.72-5.28); RED CELL DISTRIBUTION WIDTH 14.8 % (11.5-14.0); TOTAL CELLS COUNTED % (AUTO) 100 %; WHITE BLOOD COUNT 11.2 10^3/uL (4.0-10.5)
[2019-01-20 04:35] LABS: HEMOGLOBIN 7.7 g/dL (12.0-15.5)
--- NOTE | 2019-01-20 05:35 | PDOC DISCHARGE SUMMARY ---
General - Admit/Disc Date/PCP Admission Date/Primary Care Provider: 01/18/19 01:20 YOUSIF HANEY MD Discharge Date: 01/20/19 - Discharge Diagnosis (1) Endometritis Is this a current diagnosis for this admission?: Yes (2) Leukocytosis Is this a current diagnosis for this admission?: Yes (3) S/P dilatation and curettage Is this a current diagnosis for this admission?: Yes (4) Sepsis Is this a current diagnosis for this admission?: Yes - Additional Information Resuscitation Status: Full Code Home Medications: Duloxetine HCl [Cymbalta] 60 mg PO QHS 05/08/18 Buspirone HCl [Buspar 10 mg Tablet] 10 mg PO PRN PRN 01/15/19 Acetaminophen with Codeine [Tylenol #3 Tablet] 1 each PO Q4HP PRN 01/17/19 Hydrocodone/Acetaminophen [[place] 5-325 mg Tablet] 1 tab PO PRN PRN 01/17/19 History of Present Illness History of Present Illness: LINDEN MONROY is a 43 year old female Hospital Course Hospital Course: has responded well to IV abx therapy. afebrile < 36 hours. no further abdominal pain Physical Exam - Physical Exam Vital Signs: Temp Pulse Resp BP Pulse Ox 98.2 F 83 17 109/61 97 01/20/19 04:50 01/20/19 04:50 01/20/19 04:50 01/20/19 04:50 01/20/19 04:50 Intake & Output 01/18/19 01/19/19 01/20/19 06:59 06:59 06:59 Intake Total 2177 4150 600 Balance 2177 4150 600 Weight 65.9 kg General appearance: PRESENT: no acute distress, cooperative GI/Abdominal exam: PRESENT: soft - nontender and nondistended. - Gynecological Exam Vagina: normal Uterus: tender Result Laboratory Results: 01/20/19 04:12 01/19/19 04:26 01/19/19 01/19/19 01/20/19 04:26 04:26 04:12 WBC 11.1 H 11.2 H RBC 2.35 L 2.49 L Hgb 7.2 L 7.7 L Hct 21.3 L 22.6 L MCV 91 91 MCH 30.7 30.9 MCHC 34.0 34.1 RDW 14.9 H 14.8 H Plt Count 302 334 Seg Neutrophils % 82.6 H 74.0 Lymphocytes % 11.1 L 16.9 Monocytes % 4.5 6.8 Eosinophils % 1.6 2.0 Basophils % 0.2 0.3 Absolute Neutrophils 9.2 H 8.3 H Absolute Lymphocytes 1.2 1.9 Absolute Monocytes 0.5 0.8 Absolute Eosinophils 0.2 0.2 Absolute Basophils 0.0 0.0 Sodium 139.1 Potassium 4.3 Chloride 108 H Carbon Dioxide 23 Anion Gap 8 BUN 8 Creatinine 0.36 L Est GFR ( Amer) > 60 Est GFR (Non-Af Amer) > 60 Glucose 100 Calcium 8.0 L Total Bilirubin 0.1 L AST 31 ALT 33 Alkaline Phosphatase 69 Total Protein 4.8 L Albumin 2.5 L 01/17/19 23:37 Clean Catch Midstream Urine Culture - Final Group B Beta Streptococcus Impressions: Transvaginal US 01/17/19 23:18 IMPRESSION: Thickening and heterogeneity of the endometrium, as above. Findings are nonspecific. Nonvisualization of the ovaries copyright 2010 [employer]- All Rights Reserved Plan Discharge Plan: discharge home with doxycycline x 1 wk and to keep her current follow up appt with [facility] Time Spent: Less than 30 Minutes Acute Heart Failure Is this a Heart Failure Patient?: No
[2019-01-20 05:42] VITALS: BP 104/63
== END 2019-01-20 06:01 | disposition home or self-care (01) | DRG 863 ==
LOC: ER 21:07 → EH 01-18 01:20 → 2N 01-18 02:44
PROVIDERS: ADMIT Obstetrics & Gynecology; ATTEND Obstetrics & Gynecology
DX: T81.44XA Sepsis following a procedure, initial encounter (principal); E87.6 Hypokalemia; N71.9 Inflammatory disease of uterus, unspecified; B95.1 Streptococcus, group B, as the cause of diseases classified elsewhere; F32.9 Major depressive disorder, single episode, unspecified; F17.210 Nicotine dependence, cigarettes, uncomplicated; D50.9 Iron deficiency anemia, unspecified; Z79.899 Other long term (current) drug therapy
CPT/HCPCS: 36415; 76830; 80053; 80170; 81001; 82803; 83605; 83735; 85025; 85610; 87040; 87086; 87088; 87210; 87491; 87591; 93005; 93010; 93976; 96365; 96368; 99285; J1580; J1756; J3475; J3490; J7060; J7120

== ENCOUNTER → 2019-04-21 | Outpatient (CLI) | payer BC ==
--- NOTE | 2019-04-21 10:45 | RADIOLOGY REPORT (SQ) ---
EXAM DESCRIPTION: CT CHEST WITHOUT COMPLETED DATE/TIME: 04/21/2019 10:26 am REASON FOR STUDY: RETAINED PORTIONS OF PLACENTA AND MEMBRANES, W/O HEMORRHAGE (O73.1) O73.1 RETAINE D PORTIONS OF PLACENTA AND MEMBRANES, W/O HEMOR COMPARISON: None. TECHNIQUE: CT scan performed of the chest without intravenous contrast. Images reviewed with lung, soft tissue and bone windows. Reconstructed coronal and sagittal MPR images reviewed. All images st ored on PACS. All CT scanners at this facility use dose modulation, iterative reconstruction, and/or weight based d osing when appropriate to reduce radiation dose to as low as reasonably achievable (ALARA). [facility]: Dose Right [facility]: CareDose [facility]: Dose Right [facility]: Teradose 4D [facility]: sarvaMAIL RADIATION DOSE: CT Rad equipment meets quality standard of care and radiation dose reduction techniq ues were employed. CTDIvol: 4.0 mGy. DLP: 160 mGy-cm. mGy. LIMITATIONS: No technical limitations. FINDINGS: LUNGS AND PLEURA: No masses, infiltrates, or pneumothorax. No pleural effusions or pleura l calcifications. HILAR AND MEDIASTINAL STRUCTURES: No identified masses or abnormal nodes. No obvious aneurysm. HEART AND VASCULAR STRUCTURES: No aneurysm. No pericardial effusion. UPPER ABDOMEN: No significant findings. Limited exam. THYROID AND OTHER SOFT TISSUES: No masses. No adenopathy. BONES: Mild degenerative changes in the dorsal spine. HARDWARE: None in the chest. OTHER: No other significant findings. IMPRESSION: NO SIGNIFICANT FINDING ON NON-CONTRASTED CHEST CT. TECHNICAL DOCUMENTATION: JOB ID: [id number] Quality ID # [id number]: Final reports with documentation of one or more dose reduction techniques (e.g., Au tomated exposure control, adjustment of the mA and/or kV according to patient size, use of iterative reconstruction technique) 2010 [employer]- All Rights Reserved Reading location - IP/workstation name: [email or web address]
== END ==
LOC: RAD 10:08
PROVIDERS: ATTEND Student in an Organized Health Care Education/Training Program
DX: O73.1 Retained portions of placenta and membranes, without hemorrhage (principal); Z3A.00 Weeks of gestation of pregnancy not specified
CPT/HCPCS: 71250